=== PATIENT | male | born 1970 | race African-American/Black ===

== ENCOUNTER → 2019-07-19 | Outpatient (CLI) | payer MEDICARE ==
[~2019-07-19] MED LIST: GADOBENATE DIMEGLUMINE 1 ML IV ONE; SODIUM CHLORIDE 0.9% 50ML 50 ML ONE
[2019-07-19 10:46] LABS: BLOOD UREA NITROGEN 11 mg/dL (7-26); BUN/CREATININE RATIO 13 (6-25); CREATININE, SERUM 0.85 mg/dL (0.72-1.25); EST GLOMERULAR FILTRATION RATE > 60 ML/MIN (60-)
== END ==
LOC: MRI 09:48
PROVIDERS: ATTEND Urology
DX: D41.00 Neoplasm of uncertain behavior of unspecified kidney (principal)
CPT/HCPCS: 36415; 82565; 84520; A9577

== ENCOUNTER 2020-03-04 05:29 | Inpatient (IN) | payer MEDICARE ==
[2020-02-28 15:33] LABS: BASOPHILS % 0.3 % (0.0-1.0); EOSINOPHILS # (AUTO) 0.1 (0.0-0.4); HEMATOCRIT 43.3 % (38.2-49.6); HEMOGLOBIN 14.3 g/dL (14.0-18.0); LYMPHOCYTES # (AUTO) 3.3 (1.0-3.2); LYMPHOCYTES % 33.5 % (18.0-39.1); MEAN CORPUSCULAR HEMOGLOBIN 27.9 pg (28-32); MEAN CORPUSCULAR VOLUME 84.6 fL (81-99); MONOCYTES # (AUTO) 0.6 (0.2-0.8); MONOCYTES % 6.4 % (4.4-11.3); NEUTROPHILS # (AUTO) 5.7 (2.1-6.9); NEUTROPHILS % 58.4 % (38.7-80.0); PLATELET COUNT 249 x10e3/uL (140-360); RED BLOOD COUNT 5.12 x10e6/uL (4.3-5.7); RED CELL DISTRIBUTION WIDTH 13.2 % (11.7-14.4)
[2020-02-28 15:53] LABS: ANION GAP 14.3 mmol/L (8-16); BLOOD UREA NITROGEN 16 mg/dL (7-26); BUN/CREATININE RATIO 16 (6-25); CALCIUM 9.5 mg/dL (8.4-10.2); CARBON DIOXIDE 27 mmol/L (22-29); CHLORIDE 101 mmol/L (98-107); CREATININE, SERUM 1.02 mg/dL (0.72-1.25); EST GLOMERULAR FILTRATION RATE > 60 ML/MIN (60-); GLUCOSE 73 mg/dL (74-118); POTASSIUM 4.3 mmol/L (3.5-5.1); SODIUM 138 mmol/L (136-145)
[~2020-03-04] VITALS: Ht 180.3 cm; Wt 140.2 kg
[~2020-03-04 05:29] MED LIST changes: +ALBUTEROL0.63 MG/3 INH; +AMLODIPINE BESYL5 MG PO; +ASPIRIN81 MG PO; -GADOBENATE DIMEGLUMINE 1 ML IV ONE; +HYDROCHLOROTHIA25 MG PO; +LOSARTAN POTAS100 MG PO; +MELOXICAM7.5 MG PO; +METOPROLOL SUCC50 MG PO; +NEXIUM40 MG PO; +NORCO 10-325 T1 EACH PO; +POTASSIUM CHLO10 ME1 PO; +REPATHA SU140 MG/1 M SC; -SODIUM CHLORIDE 0.9% 50ML 50 ML ONE; +TIZANIDINE HCL4 MG PO; +TRULICITY1.5 MG/0.5 SC
[2020-03-04] MEDS ORDERED: CEFAZOLIN SOD 1 GM/NS 50ML 100 ML IV ONE (06:48)
[2020-03-04] MEDS ORDERED: BUPIVACAINE 0.25% 30ML SDV ONE (07:04)
[2020-03-04] MEDS ORDERED: ACETAMINOPHEN 1000 MG/100 ML 100 ML IV ONE (09:12)
[2020-03-04] MEDS ORDERED: ONDANSETRON HCL INJ 2MG/ML 2ML 2 MG/ML VIAL ONE ×2 (11:10→12:56)
[2020-03-04] MEDS ORDERED: METOCLOPRAMIDE HCL 10 MG/2ML VIAL ONE (11:10)
[2020-03-04] MEDS ORDERED: FENTANYL CITRATE/PF 100MCG/2 ML INJ ONE ×3 (11:24→12:54)
[2020-03-04] MEDS ORDERED: KETAMINE HCL INJ 50 MG/ML 10 ML VIAL ONE (12:54)
[2020-03-04] MEDS ORDERED: MIDAZOLAM HCL 2 MG/2 ML VIAL ONE (12:54)
[2020-03-04] MEDS ORDERED: DESFLURANE 240 ML BTL INH ONE (12:56)
[2020-03-04] MEDS ORDERED: NEOSTIGMINE 1 MG/ML 10ML VIAL ONE (12:56)
[2020-03-04] MEDS ORDERED: EPHEDRINE SULFATE INJ 50 MG/ML VIAL ONE (12:56)
[2020-03-04] MEDS ORDERED: ROCURONIUM BROMIDE 10 MG/ML 5ML VIAL IV ONE (12:56)
[2020-03-04] MEDS ORDERED: PROPOFOL IV EMULSION 10 MG/ML 20 ML VIAL ONE (12:56)
[2020-03-04] MEDS ORDERED: PHENYLEPHRINE HCL 1% 10 MG/ML VIAL ONE (12:56)
[2020-03-04] MEDS ORDERED: DEXAMETHASONE SOD PHOS INJ 4 MG/ML VIAL ONE (12:56)
[2020-03-04] MEDS ORDERED: LIDOCAINE HCL 2% LOCAL INJ 5 ML SDV VIAL INJ ONE (12:56)
[2020-03-04] MEDS ORDERED: GLYCOPYRROLATE INJ 0.2 MG/ML VIAL ONE (12:56)
[2020-03-04] MEDS ORDERED: SUCCINYLCHOLINE CHLORIDE 20 MG/ML 10ML VIAL ONE (12:56)
[2020-03-04 13:02] VITALS: BP 134/87
[2020-03-04 13:17] VITALS: BP 134/87
[2020-03-04] MEDS: LACTATED RINGER'S 1,000 ML INJ SCH (13:47)
[2020-03-04] MEDS: ONDANSETRON HCL INJ 2MG/ML 2ML 2 MG/ML VIAL IV PRN ×2 (13:47→19:51)
[2020-03-04] MEDS: MORPHINE SULFATE INJ 2 MG/ML SYR IV PRN ×2 (13:47→19:51)
[2020-03-04 14:07] VITALS: BP 134/87
[2020-03-04 16:00] VITALS: BP 130/79
[2020-03-04] MEDS ORDERED: DEXTROSE 50% SYRINGE 50 ML IV PRN (17:15)
[2020-03-04] MEDS: ENOXAPARIN SOD INJ 40 MG/0.4 ML SYR SC SCH (19:50)
[2020-03-04 20:00] VITALS: BP 129/75
[2020-03-04 20:57] VITALS: BP 129/75
[2020-03-04] MEDS: INSULIN LISPRO 100 UNIT/1 ML 3ML VIAL SQ SCH (21:00)
[2020-03-05] VITALS: BP 133/75
[2020-03-05] MEDS: LACTATED RINGER'S 1,000 ML INJ SCH ×2 (00:21→05:15)
[2020-03-05] MEDS: HYDROCODONE/APAP 7.5MG-325MG 1 EA TAB PO PRN ×2 (00:27→09:52)
[2020-03-05] MEDS: ONDANSETRON HCL INJ 2MG/ML 2ML 2 MG/ML VIAL IV PRN ×2 (00:28→09:52)
[2020-03-05 04:00] VITALS: BP 124/77
[2020-03-05 05:46] LABS: BASOPHILS % 0.2 % (0.0-1.0); HEMATOCRIT 42.4 % (38.2-49.6); HEMOGLOBIN 14.1 g/dL (14.0-18.0); LYMPHOCYTES # (AUTO) 1.9 (1.0-3.2); LYMPHOCYTES % 16.4 % (18.0-39.1); MEAN CORPUSCULAR HGB CONC 33.3 g/dL (31-35); MEAN CORPUSCULAR VOLUME 84.3 fL (81-99); MONOCYTES # (AUTO) 1.1 (0.2-0.8); MONOCYTES % 9.1 % (4.4-11.3); NEUTROPHILS # (AUTO) 8.6 (2.1-6.9); NEUTROPHILS % 73.9 % (38.7-80.0); PLATELET COUNT 225 x10e3/uL (140-360); RED BLOOD COUNT 5.03 x10e6/uL (4.3-5.7); RED CELL DISTRIBUTION WIDTH 13.7 % (11.7-14.4)
[2020-03-05 06:32] LABS: BLOOD UREA NITROGEN 9 mg/dL (7-26); BUN/CREATININE RATIO 8 (6-25); CALCIUM 9.4 mg/dL (8.4-10.2); CARBON DIOXIDE 23 mmol/L (22-29); CHLORIDE 103 mmol/L (98-107); CREATININE, SERUM 1.17 mg/dL (0.72-1.25); EST GLOMERULAR FILTRATION RATE > 60 ML/MIN (60-); GLUCOSE 81 mg/dL (74-118); MAGNESIUM 1.9 MG/DL (1.3-2.1); PHOSPHORUS 3.9 MG/DL (2.3-4.7); SODIUM 140 mmol/L (136-145)
[2020-03-05] MEDS ORDERED: TIZANIDINE HCL 4 MG TAB PO PRN (07:00)
[2020-03-05] MEDS: INSULIN LISPRO 100 UNIT/1 ML 3ML VIAL SQ SCH ×2 (07:30→11:30)
[2020-03-05 07:35] LABS: CHOL/HDL RATIO 5.6 (3.9-4.7)
[2020-03-05] MEDS ORDERED: LOSARTAN POTASSIUM 100 MG TAB PO SCH (09:00)
[2020-03-05] MEDS ORDERED: HYDROCHLOROTHIAZIDE 25 MG TAB PO SCH (09:00)
[2020-03-05] MEDS ORDERED: PANTOPRAZOLE SOD 40 MG TABEC PO SCH (09:00)
[2020-03-05] MEDS ORDERED: METOPROLOL SUCCINATE 50 MG TAB XL PO SCH (09:00)
[2020-03-05 09:06] VITALS: BP 127/86
[2020-03-05] MEDS: ENOXAPARIN SOD INJ 40 MG/0.4 ML SYR SC SCH (09:06)
[2020-03-05 09:30] VITALS: BP 127/86
[2020-03-05 12:00] VITALS: BP 115/85
[2020-03-05] MEDS ORDERED: ONDANSETRON HCL 4 MG ORAL DISINTEGRATING TAB PO PRN (13:15)
[2020-03-05] MEDS ORDERED: AMLODIPINE BESYLATE 5 MG TAB PO SCH (21:00)
== END 2020-03-05 13:04 | disposition home or self-care (01) | DRG 621 ==
LOC: OR 05:29 → PACU V 12:13 → MED/SURG 12:56
PROVIDERS: ADMIT Surgery; ATTEND Surgery
PROC: 0D164ZA Bypass Stomach to Jejunum, Percutaneous Endoscopic Approach (ICD-10-PCS; principal; 2020-03-04 08:00)
DX: E66.01 Morbid (severe) obesity due to excess calories (principal); E11.9 Type 2 diabetes mellitus without complications; I10 Essential (primary) hypertension; K21.9 Gastro-esophageal reflux disease without esophagitis; Z68.41 Body mass index [BMI] 40.0-44.9, adult; Z20.828 Contact with and (suspected) exposure to other viral communicable diseases
CPT/HCPCS: 36415; 71046; 80048; 80061; 82948; 83036; 83735; 84100; 85025; 93005; J0330; J0690; J1100; J1650; J2001; J2250; J2270; J2370; J2405; J2710; J2765; J3010; J7121; U0002